=== PATIENT | male | born 1935 | race Two or more races ===

== ENCOUNTER 2018-03-17 22:07 | Inpatient (IN) | payer MEDICARE, MEDICAID ==
[~2018-03-17] VITALS: Ht 170.2 cm; Wt 70.3 kg
[2018-03-17] MEDS ORDERED: ASPIR 8181 MG ORAL (22:13)
[2018-03-17] MEDS ORDERED: METFORMIN HCL500 M1 ORAL (22:13)
[2018-03-17] MEDS ORDERED: DEPAKOTE250 MG PO (22:13)
[2018-03-17] MEDS ORDERED: CLOPIDOGREL75 MG ORAL (22:13)
[2018-03-17] MEDS ORDERED: ABILIFY2 MG ORAL (22:13)
[2018-03-17] MEDS ORDERED: CRESTOR10 M1 ORAL (22:13)
[2018-03-17] MEDS ORDERED: DiphenhydrAMINE 50mg/ml Inj IVP ONE (22:15)
[2018-03-17 22:30] VITALS: BP 145/98
[2018-03-17 23:16] LABS: BASOPHILS % (AUTO) 0.8 % (0.0-2.0); HEMOGLOBIN 12.4 G/DL (14.2-18.0); LYMPHOCYTES % (AUTO) 36.7 % (20.0-45.0); MEAN CORPUSCULAR VOLUME 92 FL (80-99); MONOCYTES % (AUTO) 7.5 % (1.0-10.0); PLATELET COUNT 132 K/UL (150-450); RED BLOOD COUNT 4.11 M/UL (4.70-6.10); RED CELL DISTRIBUTION WIDTH 12.1 % (11.6-14.8)
[2018-03-17 23:37] LABS: APPEARANCE,URINE CLEAR; BILIRUBIN, URINE NEGATIVE (NEGATIVE); COLOR,URINE PALE YELLOW; GLUCOSE, URINE (UA) NEGATIVE (NEGATIVE); KETONES,URINE 3+ (NEGATIVE); LEUKOCYTE ESTERASE ,URINE 1+ (NEGATIVE); NITRITE,URINE NEGATIVE (NEGATIVE); PH,URINE 7 (4.5-8.0); PROTEIN,URINE 2+ (NEGATIVE); UROBILINOGEN,URINE NORMAL MG/DL (0.0-1.0)
[2018-03-17 23:39] LABS: ANION GAP 9 mmol/L (5-15); BLOOD UREA NITROGEN 23 mg/dL (7-18); CALCIUM 9.2 MG/DL (8.5-10.1); CARBON DIOXIDE 28 MMOL/L (21-32); CHLORIDE 108 MMOL/L (98-107); CREATININE 0.9 MG/DL (0.55-1.30); POTASSIUM 3.8 MMOL/L (3.5-5.1); SODIUM 145 MMOL/L (136-145)
[2018-03-17 23:50] LABS: ALANINE AMINOTRANSFERASE 15 U/L (12-78); ALBUMIN 3.4 G/DL (3.4-5.0); ALBUMIN/GLOBULIN RATIO 0.8 (1.0-2.7); ALKALINE PHOSPHATASE 74 U/L (46-116); ASPARTATE AMINO TRANSFERASE 15 U/L (15-37); BILIRUBIN,TOTAL 0.6 MG/DL (0.2-1.0); CREATINE KINASE 68 U/L (26-308)
--- NOTE | 2018-03-18 00:44 | Emergency Room Report ---
History of Present Illness General Chief Complaint: Vertigo Source: Patient, Family Member Present Illness HPI The patient had near syncope. He was diaphoretic at the time. He was sitting and says that he had to lay down. His helped him to lay down to and he felt that he was about to pass out. She states he was diaphoretic at that time. He denies having any chest pain. At that time he was nauseated and started vomiting. Paramedics transported the patient and state Accu-Chek was okay. The patient had a stroke in November. He saw his neurologist earlier today and was told he is "fine". He ate less today. No fevers, chest pain, headache, rashes, abdominal pain, dysuria, change in bowels. The R sided weakness is not worsened. He is on Depakote and Abilify. Allergies: Coded Allergies: MEPERIDINE (Verified Allergy, Unknown, 03/17/18) Patient History Past Medical History: see triage record Social History: Denies: smoking, alcohol use Social History Narrative Reviewed Nursing Documentation: PMH: Agreed; PSxH: Agreed Nursing Documentation-PMH Hx Cerebrovascular Accident: Yes - Nov 2017 Review of Systems All Other Systems: negative except mentioned in HPI Physical Exam Vital Signs Date Time Temp Pulse Resp B/P (MAP) Pulse Ox O2 Delivery O2 Flow Rate FiO2 03/17/18 22:09 98.7 90 14 176/100 98 Room Air 98.8 Sp02 EP Interpretation: reviewed, normal General Appearance: well appearing, no apparent distress, GCS 15 Head: normocephalic, atraumatic Eyes: bilateral eye normal inspection, bilateral eye PERRL, bilateral eye EOMI ENT: moist mucus membranes Neck: supple Respiratory: lungs clear, normal breath sounds Cardiovascular #1: regular rate, rhythm Cardiovascular #2: 2+ radial (R) Gastrointestinal: normal inspection, normal bowel sounds, non tender, no mass, non-distended Musculoskeletal: back normal, gait/station normal, normal range of motion Neurologic: alert, oriented x3, DTRs symmetric, sensory intact, speech normal, motor weakness - minimal R sided Psychiatric: mood/affect normal Skin: normal inspection, warm/dry Medical Decision Making Diagnostic Impression: Primary Impression: Near syncope Additional Impressions: Vomiting Qualified Codes: R11.2 - Nausea with vomiting, unspecified Status post stroke ER Course Patient presents with near syncope and vomiting. Differential includes acute myocardial infarction, arrhythmia, orthostatic, vasovagal, hypoglycemia, occult infection, gastroenteritis amongst others. The patient needs to be evaluated with EKG, chest x-ray, CT and labs. The patient will be treated with gentle IV hydration. The patient needs cardiac observation. EKG without injury. CT shows chronic changes no acute stroke. Chest x-ray clear. Labs with slightly elevated white count, minimal anemia, slightly elevated glucose. Patient remained stable during observation.. No more nausea or vomiting. Because of his increased co-morbidities and prior history of stroke the patient needs to be observed with quality assurance monitor body. Patient admitted telemetry Dr. Ford. Laboratory Tests Test 03/17/18 22:50 03/17/18 23:30 White Blood Count 11.0 K/UL (4.8-10.8) H Red Blood Count 4.11 M/UL (4.70-6.10) L Hemoglobin 12.4 G/DL (14.2-18.0) L Hematocrit 38.0 % (42.0-52.0) L Mean Corpuscular Volume 92 FL (80-99) Mean Corpuscular Hemoglobin 30.1 PG (27.0-31.0) Mean Corpuscular Hemoglobin Concent 32.6 G/DL (32.0-36.0) Red Cell Distribution Width 12.1 % (11.6-14.8) Platelet Count 132 K/UL (150-450) L Mean Platelet Volume 8.7 FL (6.5-10.1) Neutrophils (%) (Auto) 54.0 % (45.0-75.0) Lymphocytes (%) (Auto) 36.7 % (20.0-45.0) Monocytes (%) (Auto) 7.5 % (1.0-10.0) Eosinophils (%) (Auto) 1.0 % (0.0-3.0) Basophils (%) (Auto) 0.8 % (0.0-2.0) Prothrombin Time 10.5 SEC (9.30-11.50) Prothrombin Time INR 1.0 (0.9-1.1) PTT 25 SEC (23-33) Sodium Level 145 MMOL/L (136-145) Potassium Level 3.8 MMOL/L (3.5-5.1) Chloride Level 108 MMOL/L (98-107) H Carbon Dioxide Level 28 MMOL/L (21-32) Anion Gap 9 mmol/L (5-15) Blood Urea Nitrogen 23 mg/dL (7-18) H Creatinine 0.9 MG/DL (0.55-1.30) Estimate Glomerular Filtration Rate mL/min (>60) Glucose Level 126 MG/DL (74-106) H Calcium Level 9.2 MG/DL (8.5-10.1) Total Bilirubin 0.6 MG/DL (0.2-1.0) Aspartate Amino Transferase (AST) 15 U/L (15-37) Alanine Aminotransferase (ALT) 15 U/L (12-78) Alkaline Phosphatase 74 U/L (46-116) Total Creatine Kinase 68 U/L (26-308) Troponin I 0.000 ng/mL (0.000-0.056) Pro-B-Type Natriuretic Peptide 114 pg/mL (0-125) Total Protein 7.5 G/DL (6.4-8.2) Albumin 3.4 G/DL (3.4-5.0) Globulin 4.1 g/dL Albumin/Globulin Ratio 0.8 (1.0-2.7) L Urine Color Pale yellow Urine Appearance Clear Urine pH 7 (4.5-8.0) Urine Specific [place] 1.010 (1.005-1.035) Urine Protein 2+ (NEGATIVE) H Urine Glucose (UA) Negative (NEGATIVE) Urine Ketones 3+ (NEGATIVE) H Urine Occult Blood Negative (NEGATIVE) Urine Nitrite Negative (NEGATIVE) Urine Bilirubin Negative (NEGATIVE) Urine Urobilinogen Normal MG/DL (0.0-1.0) Urine Leukocyte Esterase 1+ (NEGATIVE) H Urine RBC 0-2 /HPF (0 - 0) H Urine WBC 0-2 /HPF (0 - 0) Urine Squamous Epithelial Cells Few /LPF (NONE/OCC) Urine Bacteria None /HPF (NONE) EKG Diagnostic Results Rate: normal Rhythm: NSR ST Segments: no acute changes Rhythm Strip Diag. Results EP Interpretation: yes Rhythm: NSR, no PVC's, no ectopy Chest X-Ray Diagnostic Results Chest X-Ray Diagnostic Results : Chest X-Ray Ordered: Yes # of Views/Limited/Complete: 1 View Indication: Other EP Interpretation: Yes Interpretation: no consolidation, no effusion, no pneumothorax Impression: No acute disease Electronically Signed by: Electronically signed by Elvis Gonzalez MD CT/MRI/US Diagnostic Results CT/MRI/US Diagnostic Results : Imaging Test Ordered: Head Impression Old findings of prior stroke no acute bleed or mass Last Vital Signs Date Time Temp Pulse Resp B/P (MAP) Pulse Ox O2 Delivery O2 Flow Rate FiO2 03/18/18 12:00 97.8 67 20 117/72 99 Room Air 97.8 Status: improved Disposition: ADMITTED INPATIENT Condition: Serious Referrals: NON PHYSICIAN (PCP) Elvis Gonzalez M.D. March 18, 2018 00:44
[2018-03-18 01:14] VITALS: BP 137/78
[2018-03-18 03:27] VITALS: BP 139/71
[2018-03-18 04:00] VITALS: BP 123/75
[2018-03-18 08:00] VITALS: BP 119/67
--- NOTE | 2018-03-18 08:49 | Diagnostic Imaging Report ---
Indication: Dizziness Technique: Contiguous 5 mm thick transaxial imaging of the head obtained in a Siemens Sensation [address] scanner. Soft tissue and bone windows generated. Automatic Exposure Control was utilized. Total Dose length Product (DLP): 1376.[address] Dose Index Volume (CTDIvol): 70.38 mGy Comparison: none Findings: There is moderate prominence of the ventricles, basal cisterns, and cerebral sulci consistent with atrophy. Moderate, nonspecific, white matter hypoattenuation is noted throughout the brain consistent with chronic small vessel disease. There is no midline shift, edema, acute hemorrhage, mass effect, or abnormal extra-axial fluid collections. Bones and extra osseous soft tissues are unremarkable. Impression: No acute intracranial bleed, mass effect or edema. Moderate atrophy of the brain. Evidence of chronic small vessel disease involving white matter tracts. [facility] has communicated the preliminary results to the Emergency Department. Their findings are largely concordant with this report. The CT scanner at [facility] is accredited by the [employer] and the scans are performed using dose optimization techniques as appropriate to a performed exam including Automatic Exposure control.
[2018-03-18] MEDS ORDERED: metFORMIN 500mg tab ORAL SCH (09:00)
[2018-03-18] MEDS ORDERED: ARIPiprazole 2mg tab ORAL SCH (09:00)
[2018-03-18] MEDS ORDERED: Aspirin EC 81mg tab ORAL SCH (09:00)
--- NOTE | 2018-03-18 10:02 | Diagnostic Imaging Report ---
Indication: Dyspnea Comparison: None A single view chest radiograph was obtained. Findings: No definite infiltrate or pulmonary vascular congestion identified. The heart is borderline enlarged. The aorta is mildly enlarged consistent with atherosclerotic vascular disease. The bones are osteopenic. Impression: No acute disease
[2018-03-18 12:00] VITALS: BP 117/72
--- NOTE | 2018-03-18 16:30 | History and Physical Report ---
DATE OF ADMISSION: 03/18/2018 HISTORY OF PRESENT ILLNESS: This is a very pleasant 82-year-old male who has a previous history of CVA, yesterday apparently he had a near syncopal episode. He also had diaphoresis. The patient states he normally gets medical care at [facility] with Dr. Simone Zamora, Neurology as well as Dr. Trent Stone from Internal Medicine. He states he is feeling well at this point in time. ALLERGIES: Meperidine. HOME MEDICATIONS: Include Lipitor, Abilify, aspirin, Plavix, Depakote, and Glucophage. REVIEW OF SYSTEMS: The patient denies any headaches, hematemesis, melena, or hematochezia. PHYSICAL EXAMINATION: GENERAL: Reveals an 82-year-old male. VITAL SIGNS: Blood pressure 140/90, heart rate 84, respirations 18, he is afebrile. HEENT: Unremarkable. LUNGS: Clear breath sounds bilaterally. ABDOMEN: Soft. EXTREMITIES: There is no edema. NEUROLOGICAL: nonfocal. He has minimal right-sided weakness. LABORATORY DATA: Lab testing shows hemoglobin 12.4, white count 11. Chemistries are normal. Glucose 126. IMPRESSION: 1. Near syncope. 2. Psych disorder. 3. Hypertension 4. Hyperlipidemia. 5. Diabetes mellitus. DISCUSSION: The patient has had a recent CVA. His CT scan does not show anything acute. He is well connected with doctors at [facility] and is supposed to see his neurologist in the near future. If he does well around today, I will ambulate him and allow him to discharge. We will obtain urgent PT/OT evaluation. Discharge planning to home later today. Ag Ford M.D. DR: Armani JOB#: [id number] CC:
--- NOTE | 2018-03-18 16:43 | Cardiology Report ---
APPROVED REPORT EKG Measurement Heart [id number] Poor data quality, interpretation may be adversely affected Normal sinus rhythm Low voltage QRS Borderline ECG
[2018-03-18] MEDS ORDERED: Atorvastatin 80mg tab ORAL SCH (21:00)
--- NOTE | 2018-03-20 13:33 | Discharge Summary ---
Discharge Summary Hospital Course Date of Admission March 18, 2018 at 01:34 Date of Discharge March 18, 2018 at 16:15 Admitting Diagnosis near syncope HPI Christa Perkins is a 82 year old male who was admitted on March 18, 2018 at 01:34 for Near Syncope Hospital Course [id number] Discharge Discharge Disposition Patient was discharged to Home () Aurelia Santana NP March 20, 2018 13:33
--- NOTE | 2018-03-21 04:00 | Discharge Summary 2 SIG ---
DATE OF ADMISSION: 03/18/2018 DATE OF DISCHARGE: 03/18/2018 BRIEF HOSPITAL COURSE: The patient is an 82-year-old male, who has a previous history of CVA, apparently had a near syncopal episode and had diaphoresis. He presented to ED and usually gets his medical care over at [facility] with Dr. Zamora, neurologist as well as Dr. Celeste . He was at home, he was sitting and felt he had to lay down. He was diaphoretic at that time. His helped him to lay down and felt that he was about to pass out. He denied chest pain. He had nausea and started vomiting. He had right-sided weakness, which was not worsened. He is on Depakote and Abilify at home. He presented to the ED where on evaluation, blood pressure was 176/100. EKG done was without injury. CT of the head showed chronic changes with no acute stroke. Chest x-ray was unremarkable. He had blood work done. WBC was 11, hemoglobin of 12, and hematocrit 38. Glucose was 126. Due to his comorbidity and prior stroke, he was admitted for evaluation of near syncope. He was admitted to telemetry. He was continued on his home medications. He was given Lipitor and aspirin and Plavix. He was given metformin 500 mg b.i.d. Blood pressure stabilized. The patient was feeling well due to rapid improvement in symptoms. The patient was eventually discharged home. He is well connected with his doctors at [facility]. He was ambulating well. He was eventually discharged home. FINAL DIAGNOSES: 1. Near syncope. 2. Psychiatric disorder. 3. Hypertension. 4. Hyperlipidemia. 5. Diabetes mellitus. 6. Recent CVA. DISPOSITION: The patient was discharged home. DISCHARGE MEDICATIONS: Refer to medication list. DISCHARGE INSTRUCTIONS: Follow up with PMD and neurologist within a week. Ag Ford M.D. I have been assigned to dictate discharge summary on this account and I was not involved in the patient's management. Aurelia Santana N.P. DR: CHECO JOB#: [id number] CC:
== END 2018-03-18 16:15 | disposition home or self-care (01) | DRG 312 ==
LOC: EDBD 22:07 → EMR 23:15 → 2E 03-18 01:34 → EDBEDREQ 03-18 02:08 → 2E 03-18 04:40
DX: R55 Syncope and collapse (principal); Z86.73 Personal history of transient ischemic attack (TIA), and cerebral infarction without residual deficits; Z88.8 Allergy status to other drugs, medicaments and biological substances; I10 Essential (primary) hypertension; F09 Unspecified mental disorder due to known physiological condition; E78.5 Hyperlipidemia, unspecified; E11.9 Type 2 diabetes mellitus without complications; Z79.02 Long term (current) use of antithrombotics/antiplatelets; Z79.84 Long term (current) use of oral hypoglycemic drugs
CPT/HCPCS: 36415; 70450; 71045; 80053; 81003; 82550; 83880; 84484; 85025; 85610; 85730; 93005; 99285; J2405

== ENCOUNTER 2019-02-16 21:25 | Emergency (ER) | payer MEDICARE, MEDICAID ==
[~2019-02-16] VITALS: Ht 170.2 cm; Wt 72.6 kg
[~2019-02-16 21:25] MED LIST: ABILIFY2 MG ORAL; ASPIR 8181 MG ORAL; CLOPIDOGREL75 MG ORAL; CRESTOR10 M1 ORAL; DEPAKOTE250 MG PO; METFORMIN HCL500 M1 ORAL
--- NOTE | 2019-02-16 21:26 | NUR ---
ED Nurse Note: PT BROUGHT IN TO ER TODAY FROM HOME BY R68. AOX4. PT C/O FEELING WEAK X THIS AM. PT DENIES ANY PAIN. PT DENIES ANY NAUSEA, VOMITING OR DIARRHEA. PT DENIES FEVER AND COUGH.
[2019-02-16 21:27] VITALS: BP 128/76
--- NOTE | 2019-02-16 21:43 | Emergency Room Report ---
History of Present Illness General Chief Complaint: Upper Respiratory Illness Source: Patient Present Illness HPI Is an 83-year-old male with a history of high blood pressure and CVA in the past. He presents with chief complaint of joint weakness and altered mental status. According to his , he had a cough is nonproductive in nature for last 2 weeks. Was doing well yesterday. Today when she came home he has had general eyes weakness and was confused. He wasn't answering question appropriately. He did not know the date or the day. Patient also said that he has no energy. No focal weakness. No fever chills but no nausea no vomiting. Decreased appetite. Allergies: Coded Allergies: MEPERIDINE (Verified Allergy, Unknown, 03/17/18) Patient History Past Medical History: see triage record, old chart reviewed, CVA/TIA Past Surgical History: other Pertinent Family History: none Social History: Denies: smoking Immunizations: other Reviewed Nursing Documentation: PMH: Agreed; PSxH: Agreed Nursing Documentation-PMH Hx Cardiac Problems: No Hx Hypertension: Yes Hx Cerebrovascular Accident: Yes Review of Systems Constitutional: Reports: malaise, weakness Eye: Denies: eye pain, blurred vision ENT: Denies: ear pain, nose congestion, throat swelling Respiratory: Reports: cough; Denies: shortness of breath Cardiovascular: Denies: chest pain, palpitations Gastrointestinal: Denies: abdominal pain, diarrhea, nausea, vomiting Musculoskeletal: Denies: back pain, joint pain Skin: Denies: rash Neurological: Denies: headache, numbness Endocrine: Denies: increased thirst, increased urine Hematologic/Lymphatic: Denies: easy bruising All Other Systems: negative except mentioned in HPI Physical Exam Vital Signs Date Time Temp Pulse Resp B/P (MAP) Pulse Ox O2 Delivery O2 Flow Rate FiO2 02/16/19 21:20 99.0 100 18 133/72 98 Room Air vitals unremarkable Sp02 EP Interpretation: reviewed, normal General Appearance: well appearing, no apparent distress, alert, other - Generalize weakness Head: normocephalic, atraumatic Eyes: bilateral eye PERRL, bilateral eye EOMI ENT: hearing grossly normal, normal pharynx Neck: full range of motion, supple, no meningismus Respiratory: chest non-tender, lungs clear, normal breath sounds Cardiovascular #1: regular rate, rhythm, no murmur Gastrointestinal: normal bowel sounds, non tender, no mass, no organomegaly, no bruit, non-distended Musculoskeletal: back normal, normal range of motion Neurologic: alert, oriented x3 Psychiatric: mood/affect normal Skin: warm/dry Medical Decision Making Diagnostic Impression: Primary Impression: UTI (urinary tract infection) Qualified Codes: N30.00 - Acute cystitis without hematuria Additional Impression: Weakness generalized ER Course Patient with generalize weakness. This is secondary to urinary tract infection. No evidence of CVA or TIA. No evidence of ACS, PE, dissection or pneumonia. Patient felt better now after IV fluid antibiotics. We'll discharge home. EKG Diagnostic Results Rate: normal Rhythm: NSR ST Segments: no acute changes Rhythm Strip Diag. Results EP Interpretation: yes Rate: 87 Rhythm: NSR, no PVC's, no ectopy Chest X-Ray Diagnostic Results Chest X-Ray Diagnostic Results : Chest X-Ray Ordered: Yes # of Views/Limited/Complete: 1 View Indication: Shortness of Breath EP Interpretation: Yes Interpretation: no consolidation, no effusion, no pneumothorax, no acute cardiopulmonary disease Impression: No acute disease Electronically Signed by: Rodger Saunders MD CT/MRI/US Diagnostic Results CT/MRI/US Diagnostic Results : Imaging Test Ordered: CT head Impression neg per radiologist Last Vital Signs Date Time Temp Pulse Resp B/P (MAP) Pulse Ox O2 Delivery O2 Flow Rate FiO2 02/16/19 21:27 96 16 Room Air 02/16/19 21:27 98.9 128/76 98 Status: improved Disposition: HOME, SELF-CARE Condition: Stable Scripts Cephalexin* (KEFLEX*) 500 Mg Capsule 500 MG ORAL TID, #21 CAP Prov: Rodger Saunders MD 02/16/19 Additional Instructions: Increase fluids. Follow-up with your DrVirgil in 2-3 days for recheck. Return if worse. Rodger Saunders MD Feb 16, 2019 21:43
--- NOTE | 2019-02-16 21:51 | NUR ---
ED Nurse Note: REPORT GIVEN TO NELIDA PRICE.
--- NOTE | 2019-02-16 22:00 | NUR ---
ED Nurse Note: received report from NELIDA Dwyer and assumed care, blood and urine specimen obtained and sent to lab, pt vss, NSR on telemetry monitor at this time, will cont monitor, pt advised to notify staff if needed assist. warm blanket provided for comfort.
[2019-02-16 22:19] LABS: APPEARANCE,URINE SLIGHTLY CLOUDY; BILIRUBIN, URINE NEGATIVE (NEGATIVE); COLOR,URINE AMBER; GLUCOSE, URINE (UA) NEGATIVE (NEGATIVE); KETONES,URINE 1+ (NEGATIVE); LEUKOCYTE ESTERASE ,URINE 2+ (NEGATIVE); NITRITE,URINE NEGATIVE (NEGATIVE); PH,URINE 8 (4.5-8.0); PROTEIN,URINE 1+ (NEGATIVE); UROBILINOGEN,URINE 1 MG/DL (0.0-1.0)
[2019-02-16 22:30] LABS: ANION GAP 7 mmol/L (5-15); BLOOD UREA NITROGEN 27 mg/dL (7-18); CALCIUM 9.9 MG/DL (8.5-10.1); CARBON DIOXIDE 32 MMOL/L (21-32); CHLORIDE 106 MMOL/L (98-107); CREATININE 1.5 MG/DL (0.55-1.30); POTASSIUM 3.6 MMOL/L (3.5-5.1); SODIUM 145 MMOL/L (136-145)
[2019-02-16 22:35] LABS: ALANINE AMINOTRANSFERASE 13 U/L (12-78); ALBUMIN 3.2 G/DL (3.4-5.0); ALBUMIN/GLOBULIN RATIO 0.8 (1.0-2.7); ALKALINE PHOSPHATASE 77 U/L (46-116); ASPARTATE AMINO TRANSFERASE 16 U/L (15-37); BILIRUBIN,TOTAL 0.5 MG/DL (0.2-1.0)
[2019-02-16 22:36] LABS: BASOPHILS % (AUTO) 0.5 % (0.0-2.0); EOSINOPHILS % (AUTO) 0.5 % (0.0-3.0); HEMATOCRIT 39.1 % (42.0-52.0); LYMPHOCYTES % (AUTO) 26.7 % (20.0-45.0); MEAN CORPUSCULAR VOLUME 91 FL (80-99); NEUTROPHILS % (AUTO) 63.3 % (45.0-75.0); PLATELET COUNT 138 K/UL (150-450); WHITE BLOOD COUNT 9.9 K/UL (4.8-10.8)
--- NOTE | 2019-02-16 22:37 | NUR ---
HAND-OFF: Report given to NELIDA LOOMIS AND ENDORSED CARE.
[2019-02-16] MEDS ORDERED: cefTRIAXone 1 GM in NS 55 ML IVPB ONE (23:00)
[2019-02-16] MEDS ORDERED: CEPHALEXIN500 MG ORAL (23:11)
[2019-02-16 23:15] VITALS: BP 173/106
--- NOTE | 2019-02-16 23:15 | NUR ---
ED Nurse Note: RECIEVED REPORT FROM NELIDA ALCANTARA TO RESUME CARE, PT IN BED RESTING QUIETLY, ALL LABS AND MEDS GIVEN, PT DENEIS PAIN OR ANY DISTRESS, ASKING TO GO HOME, AT BEDSIDE, WILL RESUME CARE ORDERED AND CONTINUE TO CLOSELY MONITOR, PT HAS PATENT SALINE LOCK IN RIGHT AC.
--- NOTE | 2019-02-16 23:50 | NUR ---
ED Nurse Note: PT COMPLETED IV ANTIBIOTICS, TOLERATED WELL, NO S/S OF ADVERSE REACTION NOTED, PT BEING PREAPRED FOR DISCHARGE AND HAS ELEVATED B/P, MD INFORMED, PT MEDICTED, WILL CONTINUE TO MONITOR FOR EFFECTIVENESS AND D/C WHEN B/P WNL, PT HAS BEEN GIVEN D/C INSTRUCTIONS BY NELIDA FRANCO.
[2019-02-17 00:25] VITALS: BP 136/68
--- NOTE | 2019-02-17 00:25 | NUR ---
ED Nurse Note: MEDS FOR B/P EFFECTIVE, WNL, PT BEING D/C TO HOME, HAS ALL D/C INSTRUCTIONS, ASSISTED WITH DRESSING INTO CLOTHES AND WHEELCHAIRED TO CAR WITH ASSIST, PT IS AMBULATORY, NO CP, NO SOB, IV LINE AND ARMBAND REMOVED WITHOUT COMPLICATIONS, NAD NOTED DURING D/C TO HOME.
[2019-02-17 00:30] VITALS: BP 183/92
--- NOTE | 2019-02-17 12:26 | Cardiology Report ---
APPROVED REPORT EKG Measurement Heart [id number] Normal sinus rhythm with sinus arrhythmia Left axis deviation Low voltage QRS Possible Lateral infarct, age undetermined Inferior infarct, age undetermined Abnormal ECG
--- NOTE | 2019-02-17 12:44 | Diagnostic Imaging Report ---
Indications: Altered mental status Technique: Spiral acquisitions obtained through the brain. Angled axial and coronal 5 x 5 mm slices were reconstructed. Total dose length product 1404.24 mGycm. CTDI vol(s) 70.38 mGy. Dose reduction achieved using automated exposure control Comparison: 03/17/2018 Findings: Again demonstrated is an area of encephalomalacia involving the right occipital lobe. Old lacunar infarct is seen in the right caudate head. There is age-related enlargement of the ventricles and extra axial CSF spaces. There is periventricular deep white matter low-attenuation consistent with chronic ischemic change. There is evidence of prior bilateral cataract surgery.. There is minimal ethmoid sinus mucosal disease. The mastoids are clear. The calvarium is intact Impression: Age-related volume loss Evidence of chronic periventricular deep white matter ischemic changes Old infarcts, as described Negative for acute intracranial bleed or mass effect This agrees with the preliminary interpretation provided overnight by [facility]. The CT scanner at [facility] is accredited by the [employer] and the scans are performed using protocols designed to limit radiation exposure to as low as reasonably achievable to attain images of sufficient resolution adequate for diagnostic evaluation.
--- NOTE | 2019-02-17 12:50 | Diagnostic Imaging Report ---
Indication: Cough Technique: One view of the chest Comparison: 03/17/2018 Findings: Lungs and pleural spaces are clear. Inspiration is suboptimal. Heart size is upper limits normal. Aorta is tortuous ectatic and calcified. Impression: No acute process
== END 2019-02-17 04:02 | disposition home or self-care (01) ==
LOC: EDBD 21:25 → EMR 21:58
DX: N30.00 Acute cystitis without hematuria (principal); R53.1 Weakness; Z86.73 Personal history of transient ischemic attack (TIA), and cerebral infarction without residual deficits; I10 Essential (primary) hypertension; Z88.8 Allergy status to other drugs, medicaments and biological substances; R41.82 Altered mental status, unspecified
CPT/HCPCS: 36415; 70450; 71045; 80053; 81001; 84484; 85025; 87086; 93005; 96361; 96365; 96375; 99284; J0360; J0696